=== PATIENT | male | born 1975 ===

== ENCOUNTER 2018-06-24 01:32 | Emergency (ER) | payer SELFPAY ==
--- NOTE | 2018-06-24 01:46 | C.PDOC ---
History Of Present Illness The patient presents to the ED for evaluation of shortness of breath and anxiety which developed earlier today. Patient notes he took one Aspirin prior to arrival. Patient was evaluated in this ED yesterday (06/23) for similar complaints and had a negative workup. He denies fever, chills, chest pain, palpitations, nausea. Time Seen by Provider: 06/24/18 01:45 Chief Complaint (Nursing): Anxiety History Per: Patient History/Exam Limitations: no limitations Onset/Duration Of Symptoms: Hrs Current Symptoms Are (Timing): Still Present Suicide/Self Injury Attempted (Context): None Modifying Factor(s): None Severity: None Pain Scale Rating Of: 0 Associated Symptoms: Anxiety Involuntary Hold By: None Recent travel outside of the [place]: No Additional History Per: Patient Past Medical History Reviewed: Historical Data, Nursing Documentation, Vital Signs Vital Signs: Last Vital Signs Temp 97.2 F L 06/24/18 06:09 Pulse 16 L 06/24/18 06:09 Resp 17 06/24/18 06:09 BP 119/86 06/24/18 06:09 Pulse Ox 98 06/24/18 06:09 - Medical History PMH: Denies: Diabetes, Hepatitis, HIV, HTN, Seizures, Sexually Transmitted Disease Surgical History: No Surg Hx Family History: States: Unknown Family Hx - Social History Hx Alcohol Use: Yes Hx Substance Use: No - Immunization History Hx Tetanus Toxoid Vaccination: No Hx Influenza Vaccination: No Hx Pneumococcal Vaccination: No Review Of Systems Constitutional: Negative for: Fever, Chills Cardiovascular: Negative for: Chest Pain, Palpitations Respiratory: Positive for: Shortness of Breath. Negative for: Cough Gastrointestinal: Negative for: Nausea, Vomiting, Abdominal Pain Skin: Negative for: Rash, Lesions, Jaundice, Bruising Neurological: Negative for: Weakness, Numbness Psych: Positive for: Anxiety. Negative for: Depression, Suicidal ideation Physical Exam - Physical Exam Appears: Non-toxic, No Acute Distress, Other (anxious ) Skin: Warm, Dry Head: Normacephalic Eye(s): bilateral: Normal Inspection Oral Mucosa: Moist Neck: Supple Chest: Symmetrical, No Deformity, No Tenderness Cardiovascular: Rhythm Regular, No Murmur Respiratory: No Rales, No Rhonchi, No Wheezing Extremity: Normal ROM, Capillary Refill (less than 2 seconds ) Neurological/Psych: Oriented x3 ED Course And Treatment - Laboratory Results Result Diagrams: 06/24/18 02:16 06/24/18 02:16 ECG: Interpreted By Me, Viewed By Me ECG Rhythm: Sinus Rhythm (77), Nonspecific Changes (unchanged from ) O2 Sat by Pulse Oximetry: 99 (on RA) Pulse Ox Interpretation: Normal Progress Note: Bloodwork, urinalysis, EKG ordered and reviewed. Ativan IVP given. Reevaluation Time: 06:54 Reassessment Condition: Improved Disposition Counseled Patient/Family Regarding: Studies Performed, Diagnosis, Need For Followup - Disposition Referrals: [facility] at [facility] [Outside] Disposition Time: 01:46 Condition: FAIR Instructions: Anxiety, Adult (DC) Forms: [facility] (Mongolian) - Clinical Impression Clinical Impression: Anxiety - Scribe Statement The provider has reviewed the documentation as recorded by the Scribe (Rebecca Muñoz) Provider Attestation: All medical record entries made by the Scribe were at my direction and personally dictated by me. I have reviewed the chart and agree that the record accurately reflects my personal performance of the history, physical exam, medical decision making, and the department course for this patient. I have also personally directed, reviewed, and agree with the discharge instructions and disposition.
[2018-06-24 02:20] LABS: BASO % 0.5 % (0.0-2.0); EOS # 0.1 K/uL (0.0-0.7); HEMOGLOBIN 16.5 g/dL (12.0-18.0); LYMPH # 1.7 K/uL (1.0-4.3); LYMPH % 32.2 % (20.0-40.0); MEAN CELL VOLUME 81.2 fL (80.0-94.0); MEAN CORPUSCULAR HEMOGLOBIN 28.7 pg (27.0-31.0); MEAN CORPUSCULAR HGB CONC 35.4 g/dL (33.0-37.0); MEAN PLATELET VOLUME 8.4 fL (7.2-11.7); MONO # 0.5 K/uL (0.0-0.8); MONO % 9.7 % (0.0-10.0); NEUT # 2.9 K/uL (1.8-7.0); NEUT % 55.6 % (50.0-75.0); NRBC % 0.1 % (0.0-2.0); RBC 5.75 Mil/uL (4.40-5.90); RED CELL DISTRIBUTION WIDTH 13.5 % (11.5-14.5); WHITE BLOOD COUNT 5.2 K/uL (4.8-10.8)
[2018-06-24 02:31] LABS: INR 1.1; PARTIAL THROMBOPLASTIN TIME 26 SECONDS (21-34); PROTHROMBIN TIME 11.9 SECONDS (9.7-12.2)
[2018-06-24 02:33] LABS: D DIMER < 200 ng/mlDDU (0-243)
[2018-06-24 02:52] VITALS: RESP 17
[2018-06-24 02:53] LABS: ABG ALLEN TEST POS; ARTERIAL BLOOD GAS HCO3 26.6 mmol/L (21-28); ARTERIAL BLOOD GAS O2 SAT 98.1 % (95-98); ARTERIAL BLOOD GAS PCO2 35 mm/Hg (35-45); ARTERIAL BLOOD GAS PH 7.47 (7.35-7.45); ARTERIAL BLOOD GAS PO2 85 mm/Hg (80-100); ARTERIAL BLOOD GAS TCO2 26.6 mmol/L (22-28)
[2018-06-24 03:30] LABS: ALB/GLOB RATIO 1.5 (1.0-2.1); ALBUMIN 4.4 g/dL (3.5-5.0); ALT/SGPT 59 U/L (21-72); AST/SGOT 59 U/L (17-59); BLOOD UREA NITROGEN 13 mg/dL (9-20); CALCIUM 9.3 mg/dl (8.6-10.4); GFR NON-AFRICAN AMERICAN > 60
[2018-06-24] MEDS ORDERED: Iodixanol 320 MG/ML 100 ML BOTTLE IV ONE (05:22)
[2018-06-24 05:31] LABS: URINE BACTERIA RARE (<OCC); URINE BILIRUBIN NEGATIVE (NEGATIVE); URINE BLOOD 1+ (NEGATIVE); URINE CLARITY Clear (Clear); URINE COLOR Yellow (YELLOW); URINE GLUCOSE (UA) NORMAL (Normal); URINE LEUKOCYTE ESTERASE NEG Leu/uL (Negative); URINE PROTEIN NEGATIVE (NEGATIVE); URINE UROBILINOGEN NORMAL mg/dL (0.2-1.0)
[2018-06-24 05:45] LABS: BARBITURATES, UR NEGATIVE (NEGATIVE); BENZODIAZEPINES, UR NEGATIVE (NEGATIVE); OPIATES, UR NEGATIVE (NEGATIVE); PHENCYCLIDINE, UR NEGATIVE (NEGATIVE)
[2018-06-24 06:09] VITALS: BP 119/86; PULSE 16; TEMP 97.2
[2018-06-24 06:56] VITALS: O2SAT 99
--- NOTE | 2018-06-24 09:18 | CT ---
Date of service: 06/24/18 CT chest, abdomen, and pelvis with IV contrast Indication: cp, elevated bilirubin Technique: Contiguous axial images of the chest, abdomen, and pelvis. Coronal and Sagittal reformats generated and reviewed. This CT exam was performed using 1 or more of the following dose reduction techniques: Automated exposure control, adjustment of the MAA and/or kV according to patient size, and/or use of iterative reconstruction technique. Contrast: Oral contrast was not administered. 100 mL IV Visipaque 320 administered. Radiation dose: Total exam DLP = 1184.47 MGy-cm. Comparison: Chest x-ray performed 06/23/18 Findings: Visualized portions of the inferior thyroid gland appear unremarkable. The mediastinal and hilar vascular structures appear within normal limits. The heart appears within normal limits of size. Minimal basilar atelectasis. No focal consolidation. No pleural effusion. No pneumothorax. 3 mm subpleural left lower lobe nodule (series 4, image 72). Hypoattenuation of the liver compatible with hepatic steatosis. Too small to characterize hepatic hypodensities; statistically likely cysts or hemangiomas. Gallbladder appears distended. No gallstones. The spleen, kidneys, pancreas, and adrenal glands appear unremarkable. The stomach is nondistended. The bowel loops appear within normal limits of caliber without evidence of intestinal obstruction. There is no definite free air. The appendix is not identified; correlate for appendectomy. No secondary signs of acute appendicitis. Prostate gland appears unremarkable. The urinary bladder appears unremarkable. Visualized osseous structures appear unremarkable. Impression: Hypoattenuation of the liver compatible with hepatic steatosis. Too small to characterize hepatic hypodensities; statistically likely cysts or hemangiomas. The gallbladder appears distended. No gallstones. The appendix is not identified; correlate for appendectomy. Minimal basilar atelectasis. 3 mm subpleural left lower lobe nodule. In the absence of risk factors for lung cancer, no specific imaging follow-up is required. If the patient is a smoker or has other risk factors, follow-up CT at 12 months is recommended to document stability. Additional findings as above. Preliminary impression was provided by virtual radiologic.
== END 2018-06-24 07:02 | disposition home or self-care (01) ==
LOC: C.ER 01:32
DX: F41.9 Anxiety disorder, unspecified (principal)
CPT/HCPCS: 71260; 74177; 80053; 81001; 82803; 83735; 84484; 85025; 85378; 85610; 85730; 99283; G0480; Q9967

== ENCOUNTER 2018-07-05 03:50 | Emergency (ER) | payer SELFPAY ==
[2018-07-05 03:59] VITALS: TEMP 99.2
[2018-07-05 04:19] LABS: BASO % 0.4 % (0.0-2.0); EOS % 0.6 % (0.0-4.0); LYMPH # 2.5 K/uL (1.0-4.3); LYMPH % 30.1 % (20.0-40.0); MEAN CELL VOLUME 83.3 fL (80.0-94.0); MEAN CORPUSCULAR HEMOGLOBIN 28.1 pg (27.0-31.0); MEAN CORPUSCULAR HGB CONC 33.7 g/dL (33.0-37.0); MEAN PLATELET VOLUME 8.5 fL (7.2-11.7); MONO # 0.8 K/uL (0.0-0.8); MONO % 9.2 % (0.0-10.0); NEUT # 4.9 K/uL (1.8-7.0); NEUT % 59.7 % (50.0-75.0); NRBC % 0.3 % (0.0-2.0); RBC 5.7 Mil/uL (4.40-5.90); RED CELL DISTRIBUTION WIDTH 13.9 % (11.5-14.5); WHITE BLOOD COUNT 8.3 K/uL (4.8-10.8)
--- NOTE | 2018-07-05 04:45 | C.PDOC ---
History Of Present Illness Pt presents to ER c/o of chest pain described as tighness/ pressure and feeling anxious and tremulous. Pt repports similar c/o few weeks ago and states symptoms feel the same. Pt reports past h/o of alcohol abuse and last drink was late last night. Pt denies SOB, dizziness, nausea, vomiting, palpitations, tobacco use, recent prolonged travel, inability state, past coagulopathy h/o Time Seen by Provider: 07/05/18 04:19 Chief Complaint (Nursing): GI Problem History Per: Patient History/Exam Limitations: no limitations Current Symptoms Are (Timing): Better Quality: Tightness, Pressure Associated Symptoms: Diaphoresis. denies: Nausea, Dyspnea, Syncope Recent travel outside of the [place]: No Past Medical History Vital Signs: Last Vital Signs Temp 99.2 F 07/05/18 03:56 Pulse 92 H 07/05/18 03:56 Resp 18 07/05/18 03:56 BP 132/82 07/05/18 03:56 Pulse Ox 100 07/05/18 03:56 - Medical History PMH: Denies: Diabetes, Hepatitis, HIV, HTN, Seizures, Sexually Transmitted Disease Family History: States: Unknown Family Hx - Social History Hx Alcohol Use: Yes Hx Substance Use: No - Immunization History Hx Tetanus Toxoid Vaccination: No Hx Influenza Vaccination: No Hx Pneumococcal Vaccination: No Review Of Systems Constitutional: Negative for: Fever Cardiovascular: Positive for: Chest Pain. Negative for: Palpitations, Light Headedness Respiratory: Negative for: Cough, Shortness of Breath, SOB with Excertion, Wheezing Gastrointestinal: Negative for: Nausea, Vomiting, Abdominal Pain Musculoskeletal: Negative for: Shoulder Pain, Back Pain Neurological: Negative for: Weakness, Numbness Physical Exam - Physical Exam Appears: No Acute Distress, Other (appears anxious) Skin: Normal Color Head: Atraumatic Eye(s): bilateral: Normal Inspection, PERRL, EOMI Neck: Supple Cardiovascular: Rhythm Regular Respiratory: Normal Breath Sounds, No Rhonchi, No Wheezing Gastrointestinal/Abdominal: Normal Exam Back: No CVA Tenderness Male Genital: Normal Inspection Neurological/Psych: Oriented x3, Normal Speech, Normal Cognition, Normal Motor, Normal Sensation Gait: Steady ED Course And Treatment - Laboratory Results Result Diagrams: 07/05/18 04:16 ECG: Interpreted By Me, Viewed By Me (and Dr Passafaro) ECG Rhythm: Sinus Rhythm (at 77) ECG Interpretation: No Acute Changes O2 Sat by Pulse Oximetry: 100 Pulse Ox Interpretation: Normal Progress Note: Pt is comfortably sleelping in ED ar room air in NAD. Labs / ekg reviewed and d/w pt. Pt advised to follwo up in clinic , return precautions discussed. Pt also advised to seek detox Reevaluation Time: 04:54 Reassessment Condition: Improved Disposition Counseled Patient/Family Regarding: Diagnosis, Need For Followup - Disposition Referrals: [facility] at [facility] [Outside] Disposition: HOME/ ROUTINE Disposition Time: 06:01 Condition: STABLE Additional Instructions: Please follow up in clinic Take medications as directed Recommend Detox Return to ER if worse Instructions: Anxiety, Adult (DC) Forms: [facility] (Mohawk) Print Language: SLOVAK - Clinical Impression Clinical Impression: Anxiety
[2018-07-05 05:33] VITALS: BP 133/85; PULSE 88; RESP 24
[2018-07-05 06:03] VITALS: O2SAT 100
--- NOTE | 2018-07-06 13:25 | CARD ---
APPROVED REPORT Date of service: 07/05/2018 EKG Measurement Heart [id number] <Conclusion> Normal sinus rhythm Nonspecific T wave abnormality Abnormal ECG
== END 2018-07-05 06:13 | disposition home or self-care (01) ==
LOC: C.ER 03:50 → SUPCPDRO 03:50 → C.ER 06:13
DX: F41.9 Anxiety disorder, unspecified (principal)